=== PATIENT | female | born 1965 | race Caucasian/White ===

== ENCOUNTER 2025-04-20 03:12 | Inpatient (IN) | payer OTHER, MEDICAID ==
[2025-04-20] VITALS (12 sets, daily range): BP systolic 122–179; BP diastolic 57–101; PULSE 86–113; RESP 15–44; TEMP 36.4–36.7; O2SAT 89–100
[~2025-04-20] VITALS: Ht 152.4 cm; Wt 72.6 kg
[2025-04-20 04:05] LABS: BG BASE EXCESS -10.7 mmol/L (-2.0-3.0); BG CARBOXYHEMOGLOBIN 0.3 % (0.5-1.5); BG DEOXYHEMOGLOBIN 0.6 % (0.0-5.0); BG FRACTION INSPIRED OXYGEN 100; BG HCO3 ACT 14.6 mmol/L (21.0-28.0); BG METHEMOGLOBIN 0.2 % (0.5-1.5); BG OXYGEN SATURATION 99.4 % (94.0-98.0); BG OXYHEMOGLOBIN 98.9 % (94.0-98.0); BG PCO2 30.7 mmHg (32.0-45.0); BG PH 7.295 (7.350-7.450); BG PO2 250.9 mmHg (83.0-108.0); BG SAMPLE SITE RIGHT BRACHIAL; BG TOTAL HEMOGLOBIN 11.4 g/dL (12.0-16.0); BG VENT MODE MASK - BIPAP; BG VENT RATE 18.0 set
[2025-04-20 04:20] LABS: BASOPHILS % 0.7 % (0.0-2.0); EOSINOPHILS % 3.7 % (0.0-5.0); HEMATOCRIT. 35.7 % (36.0-48.0); HEMOGLOBIN. 11.4 g/dL (12.0-16.0); LYMPHOCYTES % 35.0 % (20.0-50.0); MEAN PLATELET VOLUME 9.6 fl (7.4-10.4); MONOCYTES % 6.8 % (2.0-8.0); NEUTROPHILS % 53.8 % (40.0-76.0); PLATELET 280 x1000/uL (130-400); RED BLOOD CELL COUNT 4.28 mill/uL (4.2-5.4); RED CELL DISTRIBUTION WIDTH 15.3 % (11.6-14.6)
[2025-04-20] MEDS: METHYLPREDNISOLONE SOD SUCC 40MG/ML (ACT-O-VIAL) IV SCH (05:13)
[2025-04-20] MEDS: ALBUTEROL (0.083%) 2.5MG/3ML NEB HHN SCH (05:30)
[2025-04-20] MEDS: IPRATROPIUM BROMIDE (0.02%) 0.5MG/2.5ML NEB HHN SCH (05:30)
[2025-04-20 06:38] LABS: CREATININE 2.4 mg/dL (0.6-1.0); UREA NITROGEN BLOOD 44 mg/dL (9-23)
[2025-04-20 06:39] LABS: INR 0.9
[2025-04-20 06:40] LABS: ASPARTATE AMINOTRANSFERASE 24 IU/L (<34); BILIRUBIN DIRECT < 0.1 mg/dL (<=3.0); BILIRUBIN TOTAL 0.3 mg/dL (0.1-1.0); PROTEIN TOTAL 6.9 g/dL (6.0-8.3)
[2025-04-20 06:44] LABS: TROPONIN I HIGH SENSITIVITY 514 ng/L (3.0-34)
[2025-04-20] MEDS ORDERED: DEXTROSE 50% WATER 50ML SYRINGE IV PRN (07:30)
[2025-04-20] MEDS: ENOXAPARIN 100MG/ML SYR SUBCUT ONE (07:30)
[2025-04-20] MEDS: BLOOD SUGAR DIAGNOSTIC STRIP TEST SCH (07:30)
[2025-04-20] MEDS: INSULIN LISPRO 100 UNITS/ML SUBCUT SCH (08:00)
[2025-04-20] MEDS: AMLODIPINE 10MG TABLET PO SCH (09:42)
[2025-04-20] MEDS: FUROSEMIDE 40MG TABLET PO SCH (09:42)
[2025-04-20] MEDS: SODIUM POLYSTYRENE SULFONATE 15 G/60 ML BOT PO NR (09:43)
[2025-04-20] MEDS: CALCIUM GLUCONATE 1GM PREMIX 50 ML IV ONE (09:43)
[2025-04-20] MEDS: CALCIUM GLUCONATE 100MG/ML 10ML VIAL IV ONE (09:45)
[2025-04-20] MEDS: HYDRALAZINE HCL 50MG TABLET PO NR (10:30)
[2025-04-20 12:24] LABS: HEMATOCRIT. 37.6 % (36.0-48.0); HEMOGLOBIN. 12.0 g/dL (12.0-16.0); MEAN PLATELET VOLUME 9.5 fl (7.4-10.4); PLATELET 253 x1000/uL (130-400); RED BLOOD CELL COUNT 4.48 mill/uL (4.2-5.4); RED CELL DISTRIBUTION WIDTH 14.8 % (11.6-14.6)
[2025-04-20 12:51] LABS: CREATININE 2.4 mg/dL (0.6-1.0); TRIGLYCERIDE 120 mg/dL (0-150)
[2025-04-20 12:52] LABS: LDL CHOLESTEROL 65 mg/dL (5-100); UREA NITROGEN BLOOD 39 mg/dL (9-23)
[2025-04-20 12:53] LABS: ASPARTATE AMINOTRANSFERASE 24 IU/L (<34)
[2025-04-20 12:54] LABS: BILIRUBIN TOTAL 0.4 mg/dL (0.1-1.0); PROTEIN TOTAL 7.3 g/dL (6.0-8.3)
[2025-04-20] MEDS: ASPIRIN 325MG TABLET PO ONE (12:56)
[2025-04-20] MEDS ORDERED: LOSA50TA41 MT (13:08)
[2025-04-20] MEDS ORDERED: SODI650T PO (13:08)
[2025-04-20] MEDS: INSULIN GLARGINE 100 UNITS/ML SUBCUT SCH ×2 (13:53→21:17)
[2025-04-20] MEDS: ISOSORBIDE MONONITRATE 30MG TABLET SR 24HR PO SCH (13:54)
[2025-04-20] MEDS: HYDRALAZINE HCL 50MG TABLET PO SCH (13:55)
[2025-04-20] MEDS: ASPIRIN 81MG TABLET PO SCH (13:55)
[2025-04-20] MEDS: FUROSEMIDE 40MG/4ML VIAL IVP SCH ×2 (13:55→19:07)
[2025-04-20] MEDS: SODIUM BICARBONATE 650MG TABLET PO SCH (14:15)
[2025-04-20] MEDS ORDERED: IPRATROPIUM/ALBUTEROL 0.5-3(2.5)MG/3ML NEB HHN PRN (16:30)
[2025-04-20 16:57] LABS: BG BASE EXCESS -8.0 mmol/L (-2.0-3.0); BG CARBOXYHEMOGLOBIN 0.5 % (0.5-1.5); BG DEOXYHEMOGLOBIN 2.5 % (0.0-5.0); BG FLOW(L/min) 5.00 L/min; BG FRACTION INSPIRED OXYGEN 40; BG HCO3 ACT 15.9 mmol/L (21.0-28.0); BG METHEMOGLOBIN 0.3 % (0.5-1.5); BG OXYGEN SATURATION 97.5 % (94.0-98.0); BG OXYHEMOGLOBIN 96.7 % (94.0-98.0); BG PCO2 27.6 mmHg (32.0-45.0); BG PH 7.377 (7.350-7.450); BG PO2 96.2 mmHg (83.0-108.0); BG SAMPLE SITE RIGHT BRACHIAL; BG TOTAL HEMOGLOBIN 11.3 g/dL (12.0-16.0); BG VENT MODE NASAL CANNULA
[2025-04-20] MEDS: SODIUM ZIRCONIUM CYCLOSILICATE 10GM/PACKET PO NR (19:07)
[2025-04-20] MEDS: SODIUM BICARBONATE 8.4% 50MEQ/50ML SYR IV NR (19:08)
[2025-04-20] MEDS: INSULIN LISPRO 100 UNITS/ML SUBCUT NR (21:17)
[2025-04-20] MEDS: ATORVASTATIN CALCIUM 40MG TABLET PO SCH (21:18)
[2025-04-20 23:17] LABS: LYMPHOCYTES % MANUAL 4.0 % (20.0-60.0); NEUTROPHILS % MANUAL 96.0 % (45.0-75.0); PLATELET ESTIMATE NORMAL
[2025-04-21] VITALS (15 sets, daily range): BP systolic 95–148; BP diastolic 44–81; PULSE 95–114; RESP 11–33; TEMP 36.4–36.7; O2SAT 98–100
[2025-04-21 00:23] LABS: CREATININE 2.6 mg/dL (0.6-1.0)
[2025-04-21 00:24] LABS: UREA NITROGEN BLOOD 47.0 mg/dL (9-23)
[2025-04-21 01:24] LABS: CLARITY URINE CLEAR (CLEAR); COLOR URINE YELLOW (YELLOW); GLUCOSE URINE 1+ (NEGATIVE); KETONES URINE NEGATIVE (NEGATIVE); LEUKOCYTE ESTERASE URINE TRACE (NEGATIVE); NITRITE URINE NEGATIVE (NEGATIVE); OCCULT BLOOD URINE NEGATIVE (NEGATIVE); PH URINE 6.0 (4.5-8.0); PROTEIN URINE 1+ (NEGATIVE); SPECIFIC GRAVITY URINE 1.009 (1.005-1.030); UROBILINOGEN URINE 0.2 E.U./dL (0.2-1.0)
[2025-04-21 01:43] LABS: *AMPHETAMINES SCREEN URINE NEGATIVE (NEGATIVE)
[2025-04-21 01:44] LABS: *BARBITURATES SCREEN URINE NEGATIVE (NEGATIVE); *BENZODIAZEPINES SCREEN URINE NEGATIVE (NEGATIVE); *COCAINE SCREEN URINE NEGATIVE (NEGATIVE); CANNABINOID URINE SCREEN NEGATIVE (NEGATIVE); ECSTASY MDMA SCREEN URINE NEGATIVE (NEGATIVE); METHADONE URINE SCREEN NEGATIVE (NEGATIVE); OPIATES URINE SCREEN NEGATIVE (NEGATIVE); PHENCYCLIDINE URINE SCREEN NEGATIVE (NEGATIVE)
[2025-04-21 02:03] LABS: SQUAMOUS EPITHELIAL CELL URINE 2+ /lpf (RARE/1+)
[2025-04-21 02:04] LABS: BACTERIA URINE 2+; RBC URINE NONE SEEN /hpf (0-2)
[2025-04-21 06:23] LABS: BASOPHILS % 0.1 % (0.0-2.0); EOSINOPHILS % 0.0 % (0.0-5.0); HEMATOCRIT. 30.4 % (36.0-48.0); HEMOGLOBIN. 10.3 g/dL (12.0-16.0); LYMPHOCYTES % 10.1 % (20.0-50.0); MEAN PLATELET VOLUME 9.0 fl (7.4-10.4); MONOCYTES % 9.6 % (2.0-8.0); NEUTROPHILS % 80.2 % (40.0-76.0); PLATELET 253 x1000/uL (130-400); RED BLOOD CELL COUNT 3.79 mill/uL (4.2-5.4); RED CELL DISTRIBUTION WIDTH 14.2 % (11.6-14.6)
[2025-04-21 06:35] LABS: CREATININE 2.4 mg/dL (0.6-1.0)
[2025-04-21 06:36] LABS: UREA NITROGEN BLOOD 48 mg/dL (9-23)
[2025-04-21 06:38] LABS: PHOSPHORUS 4.9 mg/dL (2.5-4.9)
[2025-04-21] MEDS: MAGNESIUM 2 G PREMIX 50 ML IV NR (13:18)
[2025-04-21] MEDS: CEFTRIAXONE 1GM/50ML 50 ML IV SCH (15:00)
[2025-04-21] MEDS: ENOXAPARIN 30MG/0.3ML SYR SUBCUT SCH (17:30)
[2025-04-22] VITALS (10 sets, daily range): BP systolic 93–132; BP diastolic 41–68; PULSE 97–118; RESP 0–24; TEMP 36.3–36.6; O2SAT 91–100
[2025-04-22 07:38] LABS: BASOPHILS % 0.3 % (0.0-2.0); EOSINOPHILS % 0.8 % (0.0-5.0); HEMATOCRIT. 30.7 % (36.0-48.0); HEMOGLOBIN. 10.0 g/dL (12.0-16.0); LYMPHOCYTES % 12.2 % (20.0-50.0); MEAN PLATELET VOLUME 9.4 fl (7.4-10.4); MONOCYTES % 9.7 % (2.0-8.0); NEUTROPHILS % 77.0 % (40.0-76.0); PLATELET 264 x1000/uL (130-400); RED BLOOD CELL COUNT 3.77 mill/uL (4.2-5.4); RED CELL DISTRIBUTION WIDTH 14.5 % (11.6-14.6)
[2025-04-22 07:58] LABS: CREATININE 2.8 mg/dL (0.6-1.0)
[2025-04-22 07:59] LABS: UREA NITROGEN BLOOD 53 mg/dL (9-23)
[2025-04-22 08:01] LABS: PHOSPHORUS 6.0 mg/dL (2.5-4.9)
[2025-04-22] MEDS ORDERED: FURO-151 MT (11:56)
[2025-04-22] MEDS ORDERED: INSU100I28 SQ (11:56)
[2025-04-22] MEDS ORDERED: LEVO250T74 MT (11:57)
[2025-04-22] MEDS ORDERED: FUROSEMIDE 40MG TABLET PO SCH (18:00)
== END 2025-04-22 16:24 | disposition home or self-care (01) | DRG 280 ==
LOC: ER 03:12 → 5EST 05:42 → EDBEDREQTM 05:50 → EDBEDREQ 05:50 → ENRESERV 06:29
PROVIDERS: ADMIT Internal Medicine; ATTEND Internal Medicine
PROC: 5A09357 Assistance with Respiratory Ventilation, Less than 24 Consecutive Hours, Continuous Positive Airway Pressure (ICD-10-PCS; principal; 2025-04-20)
DX: I21.4 Non-ST elevation (NSTEMI) myocardial infarction (principal); I50.23 Acute on chronic systolic (congestive) heart failure; J96.01 Acute respiratory failure with hypoxia; I13.0 Hypertensive heart and chronic kidney disease with heart failure and stage 1 through stage 4 chronic kidney disease, or unspecified chronic kidney disease; N17.9 Acute kidney failure, unspecified; E87.20 Acidosis, unspecified; N39.0 Urinary tract infection, site not specified; N18.9 Chronic kidney disease, unspecified; Z68.31 Body mass index [BMI] 31.0-31.9, adult; E11.22 Type 2 diabetes mellitus with diabetic chronic kidney disease; E87.5 Hyperkalemia; I16.0 Hypertensive urgency; E78.5 Hyperlipidemia, unspecified; E66.9 Obesity, unspecified; Z79.4 Long term (current) use of insulin; Z82.49 Family history of ischemic heart disease and other diseases of the circulatory system
CPT/HCPCS: 36415; 36600; 71045; 76770; 80048; 80053; 80061; 80076; 80305; 80320; 81003; 82375; 82550; 82805; 82962; 83036; 83605; 83735; 83880; 84100; 84145; 84484; 85025; 87077; 87186; 87426; 93005; 93306; 93970; 94070; 94660; 94664; 99291; J0612; J0696; J1650; J1815; J1938; J2919; J3475; J3490; G0480